=== PATIENT | male | born 1945 | race Caucasian/White ===

== ENCOUNTER 2020-08-29 05:29 | Outpatient (RCR) | payer MEDICARE, OTHER | END 2020-11-27 | disposition home or self-care (01) | LOC: ONC 05:29 | PROVIDERS: ATTEND Radiology Radiation Oncology | DX: C61 Malignant neoplasm of prostate (principal); F41.9 Anxiety disorder, unspecified; M19.90 Unspecified osteoarthritis, unspecified site; Z98.1 Arthrodesis status; Z79.899 Other long term (current) drug therapy; Z80.42 Family history of malignant neoplasm of prostate; Z87.891 Personal history of nicotine dependence; Z88.2 Allergy status to sulfonamides; Z91.041 Radiographic dye allergy status | CPT/HCPCS: 99204 ==

== ENCOUNTER 2021-01-03 05:33 | Outpatient (CLI) | payer MEDICARE, OTHER ==
[~2021-01-03] VITALS: Ht 182.9 cm; Wt 95.3 kg
[2021-01-08] MEDS ORDERED: NFBIOT1000 PO (09:54)
[2021-01-08] MEDS ORDERED: SUCR1TAB PO (09:54)
[2021-01-08] MEDS ORDERED: ASCO-262 PO (09:54)
[2021-01-08] MEDS ORDERED: ANTI1CAP5 PO (09:54)
[2021-01-08] MEDS ORDERED: PANT40TA52 PO (09:54)
[2021-01-08] MEDS ORDERED: CHOL-34 PO (09:54)
[2021-01-08] MEDS ORDERED: ZINC50TA51 PO (09:54)
[2021-01-08] MEDS ORDERED: FINA5TAB6 PO (09:54)
[2021-01-08] MEDS ORDERED: BICA50TA5 PO (11:49)
[2021-01-10] MEDS ORDERED: ACET1TAB43 PO (11:34)
[2021-01-10] MEDS ORDERED: CIPR-226 PO (11:34)
== END 2021-01-08 12:26 | disposition home or self-care (01) ==
LOC: PREOP 05:33
PROVIDERS: ATTEND Radiology Radiation Oncology
DX: Z01.818 Encounter for other preprocedural examination (principal)

== ENCOUNTER 2021-01-10 10:39 | Day surgery (SDC) | payer MEDICARE, OTHER ==
[2021-01-10] VITALS (10 sets, daily range): BP systolic 120–151; BP diastolic 67–85
[~2021-01-10] VITALS: Ht 182.9 cm; Wt 95.3 kg
[~2021-01-10 10:39] MED LIST: ANTI1CAP5 PO; ASCO-262 PO; BICA50TA5 PO; CHOL-34 PO; FINA5TAB6 PO; NFBIOT1000 PO; PANT40TA52 PO; SUCR1TAB PO; ZINC50TA51 PO
--- NOTE | 2021-01-10 11:30 | Progress Note-Pre Operative ---
Pre-Operative Progress Note H&P Reviewed The H&P was reviewed, patient examined and no changes noted. Date Seen by Provider: Jan 10, 2021 Time Seen by Provider: 11:04 Date H&P Reviewed: Jan 10, 2021 Time H&P Reviewed: 11:04 Pre-Operative Diagnosis: Prostate cancer cT1c, PSA 6.2 (on Proscar), Franca 9(4+5) PATY VILLALOBOS MD Jan 10, 2021 11:30
[2021-01-10] MEDS ORDERED: ACET1TAB43 PO (11:34)
[2021-01-10] MEDS ORDERED: CIPR-226 PO (11:34)
--- NOTE | 2021-01-10 11:38 | Discharge Inst-Simple/Standard ---
Discharge Inst-Standard Reconcile Patient Problems Problems Reviewed?: Yes Discharge Medications New, Converted or Re-Newed RX: RX Given to Pt/Family Patient Instructions/Follow Up Plan of Care/Instructions/FU: 1)one month follow up with Dr. Mckoy 02/07/21 at 2:45 p.m. 2)post implant ct scan at [facility] 02/08/21 at 9:00 a.m. Activity as Tolerated: Yes Discharge Diet: No Restrictions Other Inst to Patient Please instruct patient on [place] care and self removal on Friday01/15/21 in the morning. PATY VILLALOBOS MD Jan 10, 2021 11:38
[2021-01-10] MEDS: LACTATED RINGERS 1,000 ML IV PRN ×2 (12:02→14:21)
[2021-01-10] MEDS ORDERED: VITA1CAP PO (12:18)
[2021-01-10] MEDS ORDERED: BACITRACIN OINTMENT 28 GM TUBE ONE (13:32)
[2021-01-10] MEDS ORDERED: fentaNYL INJ 100 MCG/2 ML AMP ONE (13:41)
[2021-01-10] MEDS ORDERED: proPOfol 200 MG/20 ML (DIPRIVAN) VIAL IV ONE (13:52)
[2021-01-10] MEDS ORDERED: LIDOCAINE PF 2% 5 ML (XYLOCAINE) VIAL ONE (13:52)
[2021-01-10] MEDS ORDERED: ONDANSETRON 4 MG/2 ML (SDV) Z0FRAN ONE (13:53)
[2021-01-10] MEDS ORDERED: SEVOFLURANE (ULTANE) 15 ML INHAL SOLN ONE (14:31)
--- NOTE | 2021-01-10 14:40 | Anesthesia-General Post-Op ---
General Patient Condition Mental Status/LOC: Same as Preop Cardiovascular: Satisfactory Nausea/Vomiting: Absent Respiratory: Satisfactory Pain: Controlled Complications: Absent Post Op Complications Complications None Follow Up Care/Instructions Patient Instructions None needed. Anesthesia/Patient Condition Patient Condition Patient is doing well, no complaints, stable vital signs, no apparent adverse anesthesia problems. No complications reported per nursing. CARMEL ESTEBAN DO Jan 10, 2021 14:40
--- NOTE | 2021-01-10 14:54 | Diagnostic Imaging Report ---
INDICATION: Fluoroscopy for brachytherapy. Fluoroscopy was provided for Dr. Carias for prostate brachytherapy. 9 seconds of fluoroscopic time was utilized. 2 images were obtained starting radiation seed implants within the prostate gland. IMPRESSION: Fluoroscopy for prostate brachytherapy. Dictated by: Dictated on workstation # [id number]
--- NOTE | 2021-01-10 15:19 | Progress Note-Post Operative ---
Post-Operative Progess Note Surgeon (s)/Neuropsychology Director (s) Surgeon PATY VILLALOBOS MD Neuropsychology Director: Christ CHEUNG MD Pre-Operative Diagnosis Prostate cancer cT1c, PSA 6.2 (on Proscar), Franca 9(4+5) Post-Operative Diagnosis Same as pre op Procedure & Operative Findings Date of Procedure 01/10/21 Procedure Performed/Findings (1) 67% Cesium 131 permanent prostate seed implant (2) Injection of biodegradable hydrogel prostate-rectal spacer utilizing the silkfred Tessa system (3) Cystogram Prostate volume 26.4 cc Anesthesia Type General Estimated Blood Loss Estimated blood loss (mL): Minimal Specimens/Packing Specimens Removed None Packing: None APTY VILLALOBOS MD Jan 10, 2021 15:19
== END 2021-01-10 16:55 | disposition home or self-care (01) ==
LOC: SDC 10:39
PROVIDERS: ATTEND Radiology Radiation Oncology
DX: C61 Malignant neoplasm of prostate (principal); M19.90 Unspecified osteoarthritis, unspecified site; Z79.899 Other long term (current) drug therapy; Z87.891 Personal history of nicotine dependence; Z87.442 Personal history of urinary calculi
CPT/HCPCS: 55874; 55876; 76000; 76965; 77290; 77318; 77332; 77370; 77470; 77778; 87081; C1715 ×2; C1889; C2643

== ENCOUNTER → 2021-03-19 | Outpatient (RCR) | payer MEDICARE, OTHER ==
[~2021-03-19] MED LIST changes: +ACET1TAB43 PO; +CIPR-226 PO; +VITA1CAP PO
== END | disposition home or self-care (01) ==
LOC: ONC 12-19 09:41
PROVIDERS: ATTEND Radiology Radiation Oncology
DX: C61 Malignant neoplasm of prostate (principal)
CPT/HCPCS: 76873; 77290; 77295; 77300; 77301; 77334; 77336; 77338; 77385; 77470

== ENCOUNTER 2021-03-29 07:36 | Outpatient (RCR) | payer MEDICARE, OTHER | END 2021-03-30 | disposition home or self-care (01) | LOC: ONC 07:36 | PROVIDERS: ATTEND Radiology Radiation Oncology | DX: Z51.0 Encounter for antineoplastic radiation therapy (principal); C61 Malignant neoplasm of prostate; Z80.42 Family history of malignant neoplasm of prostate | CPT/HCPCS: 77336; 77385 ==

== ENCOUNTER 2021-04-03 08:00 | Outpatient (RCR) | payer MEDICARE, OTHER | END 2021-04-30 | disposition home or self-care (01) | LOC: ONC 08:00 | PROVIDERS: ATTEND Radiology Radiation Oncology | DX: Z51.0 Encounter for antineoplastic radiation therapy (principal); C61 Malignant neoplasm of prostate; F41.9 Anxiety disorder, unspecified; Z80.42 Family history of malignant neoplasm of prostate | CPT/HCPCS: 77336; 77385 ==

== ENCOUNTER 2021-05-17 09:03 | Outpatient (RCR) | payer MEDICARE, OTHER | END 2021-05-28 | disposition home or self-care (01) | LOC: ONC 09:03 | PROVIDERS: ATTEND Radiology Radiation Oncology | DX: C61 Malignant neoplasm of prostate (principal); F41.9 Anxiety disorder, unspecified; Z80.42 Family history of malignant neoplasm of prostate | CPT/HCPCS: 99213 ==